=== PATIENT | male | born 1940 | race Caucasian/White ===

== ENCOUNTER 2019-05-01 01:49 | Inpatient (IN) | payer MEDICARE, MEDICAID ==
[~2019-05-01] VITALS: Ht 170.2 cm; Wt 83.0 kg
[2019-05-01] MEDS ORDERED: ONDANSETRON HCL 4MG/2ML INJ IV STA (02:15)
[2019-05-01] MEDS ORDERED: SODIUM CHLORIDE 0.9% 1,000 ML IV ONE (02:15)
[2019-05-01 03:03] LABS: BASOPHILS % 0.4 % (0.0-2.0); EOSINOPHILS % 0.3 % (0.0-5.0); HEMATOCRIT. 38.5 % (42.0-52.0); LYMPHOCYTES % 7.5 % (20.0-50.0); MEAN CORPUSCULAR HEMOGLOBIN 25.1 pg (28.0-32.0); MEAN CORPUSCULAR VOLUME 74.2 fL (80.0-94.0); MEAN PLATELET VOLUME 8.2 fl (7.4-10.4); MONOCYTES % 9.6 % (2.0-8.0); NEUTROPHILS % 82.2 % (40.0-76.0); PLATELET 216 x1000/uL (130-400); RED BLOOD CELL COUNT 5.19 mill/uL (4.7-6.1); RED CELL DISTRIBUTION WIDTH 14.9 % (11.6-14.6)
[2019-05-01 03:08] LABS: CHLORIDE 104 mEq/L (98-107)
[2019-05-01 03:57] LABS: CLARITY URINE CLEAR (CLEAR); COLOR URINE YELLOW (YELLOW); KETONES URINE NEGATIVE (NEGATIVE); LEUKOCYTE ESTERASE URINE NEGATIVE (NEGATIVE); NITRITE URINE NEGATIVE (NEGATIVE); OCCULT BLOOD URINE NEGATIVE (NEGATIVE); PH URINE 7.5 (4.5-8.0); PROTEIN URINE 1+ (NEGATIVE); SPECIFIC GRAVITY URINE 1.014 (1.005-1.030)
[2019-05-01] MEDS ORDERED: SODIUM CHLORIDE 0.9% 500 ML IV ONE (06:00)
[2019-05-01] MEDS ORDERED: ASPIRIN 325MG TABLET PO ONE (06:00)
[2019-05-01] MEDS ORDERED: IOHEXOL-350 100 ML BOTTLE ONE (06:24)
[2019-05-01] MEDS ORDERED: GUAIFENESIN 200MG/10ML SUGAR FREE UDC PO PRN (10:30)
[2019-05-01] MEDS ORDERED: CLONIDINE 0.1MG TABLET PO PRN (10:30)
[2019-05-01] MEDS ORDERED: ACETAMINOPHEN 325MG TABLET PO PRN (10:30)
[2019-05-01] MEDS ORDERED: MAGNESIUM HYDROXIDE 400MG/5ML 30ML UDC PO PRN (10:30)
[2019-05-01] MEDS ORDERED: ONDANSETRON HCL 4MG/2ML INJ IV PRN (10:30)
[2019-05-01] MEDS ORDERED: MAGNESIUM/ALUMINUM HYDROXIDE/SIMETHICONE 30ML UDC PO PRN (10:30)
[2019-05-01] MEDS ORDERED: NA PHOS,M-B/NA PHOS,DI-BA ENEMA 118ML PR PRN (10:30)
[2019-05-01 11:50] VITALS: BP 150/83
[2019-05-01 12:00] VITALS: BP 150/83
[2019-05-01] MEDS ORDERED: METF-414 MT (12:22)
[2019-05-01] MEDS ORDERED: BENA5TAB6 MT (12:22)
[2019-05-01] MEDS ORDERED: DEXTROSE 50% WATER 50ML SYRINGE IV PRN (14:00)
[2019-05-01] MEDS: SODIUM CHLORIDE 0.9% INJ 3ML FLUSH IVF SCH (14:06)
[2019-05-01] MEDS: ENOXAPARIN 40MG/0.4ML SYR SUBCUT SCH (14:07)
[2019-05-01 16:00] VITALS: BP 148/79
[2019-05-01] MEDS: BLOOD SUGAR DIAGNOSTIC STRIP TEST SCH ×2 (17:40→20:32)
[2019-05-01] MEDS: INSULIN LISPRO 100 UNITS/ML SUBCUT SCH ×2 (19:20→20:47)
[2019-05-01 20:00] VITALS: BP 133/75
[2019-05-01] MEDS: FAMOTIDINE 20MG TABLET PO SCH (20:39)
[2019-05-01] MEDS: ATORVASTATIN CALCIUM 20MG TABLET PO SCH (20:39)
[2019-05-02] VITALS: BP 137/79
[2019-05-02] MEDS: SODIUM CHLORIDE 0.9% INJ 3ML FLUSH IVF SCH ×3 (01:54→20:43)
[2019-05-02 04:00] VITALS: BP 121/64
[2019-05-02] MEDS: BLOOD SUGAR DIAGNOSTIC STRIP TEST SCH ×4 (07:40→21:00)
[2019-05-02 08:00] VITALS: BP 144/70
[2019-05-02] MEDS ORDERED: ASPIRIN 325MG EC TABLET PO SCH (09:00)
[2019-05-02] MEDS: INSULIN LISPRO 100 UNITS/ML SUBCUT SCH ×4 (10:08→20:38)
[2019-05-02] MEDS: ENOXAPARIN 40MG/0.4ML SYR SUBCUT SCH (10:08)
[2019-05-02 12:00] VITALS: BP 142/66
[2019-05-02 16:00] VITALS: BP 134/68
[2019-05-02 16:23] LABS: T4 FREE 1.37 ng/dL (0.76-1.46)
[2019-05-02 16:30] LABS: FOLIC ACID (FOLATE) SERUM 16.3 ng/mL (>5.38)
[2019-05-02 20:00] VITALS: BP 132/66
[2019-05-02] MEDS: ATORVASTATIN CALCIUM 20MG TABLET PO SCH (20:38)
[2019-05-02] MEDS: FAMOTIDINE 20MG TABLET PO SCH (20:38)
[2019-05-02] MEDS ORDERED: QUETIAPINE FUMARATE 50MG TABLET PO PRN (23:30)
[2019-05-03 00:19] VITALS: BP 142/69
[2019-05-03 04:00] VITALS: BP 137/68
[2019-05-03] MEDS: SODIUM CHLORIDE 0.9% INJ 3ML FLUSH IVF SCH ×3 (06:53→20:58)
[2019-05-03] MEDS: INSULIN LISPRO 100 UNITS/ML SUBCUT SCH ×4 (07:36→20:57)
[2019-05-03] MEDS: BLOOD SUGAR DIAGNOSTIC STRIP TEST SCH ×4 (07:36→20:57)
[2019-05-03 08:00] VITALS: BP 107/71
[2019-05-03] MEDS: ENOXAPARIN 40MG/0.4ML SYR SUBCUT SCH (09:28)
[2019-05-03] MEDS: CLOPIDOGREL 75MG TABLET PO SCH (09:28)
[2019-05-03 12:00] VITALS: BP 132/66
[2019-05-03] MEDS ORDERED: ONDANSETRON HCL 4MG TABLET PO PRN (15:15)
[2019-05-03 16:00] VITALS: BP 146/65
[2019-05-03 17:05] LABS: HEMATOCRIT 41.5 % (42.0-52.0); HEMOGLOBIN 13.7 g/dL (14.0-18.0); MEAN CORPUSCULAR HEMOGLOBIN 24.7 pg (28.0-32.0); MEAN CORPUSCULAR VOLUME 75.1 fL (80.0-94.0); PLATELET 232 x1000/uL (130-400); RED BLOOD CELL COUNT 5.52 mill/uL (4.7-6.1); RED CELL DISTRIBUTION WIDTH 15.3 % (11.6-14.6)
[2019-05-03 17:10] LABS: CHLORIDE 105 mEq/L (98-107)
[2019-05-03 17:12] LABS: INR 1.1; PROTHROMBIN TIME 11.1 sec (9.6-11.0)
[2019-05-03 20:00] VITALS: BP 117/63
[2019-05-03] MEDS: ATORVASTATIN CALCIUM 20MG TABLET PO SCH (20:57)
[2019-05-03] MEDS: FAMOTIDINE 20MG TABLET PO SCH (20:57)
[2019-05-03] MEDS ORDERED: QUETIAPINE FUMARATE 25MG TABLET PO SCH (21:00)
[2019-05-04] VITALS (7 sets, daily range): BP systolic 118–153; BP diastolic 58–79
[2019-05-04] MEDS: BLOOD SUGAR DIAGNOSTIC STRIP TEST SCH ×3 (06:44→18:08)
[2019-05-04] MEDS: SODIUM CHLORIDE 0.9% INJ 3ML FLUSH IVF SCH ×2 (06:46→18:08)
[2019-05-04] MEDS: INSULIN LISPRO 100 UNITS/ML SUBCUT SCH ×3 (07:55→18:08)
[2019-05-04] MEDS: CLOPIDOGREL 75MG TABLET PO SCH (08:31)
[2019-05-04] MEDS: ENOXAPARIN 40MG/0.4ML SYR SUBCUT SCH (08:31)
== END 2019-05-04 22:30 | DRG 65 ==
LOC: ER 01:49 → EDBEDREQ 03:59 → EDBEDREQTM 03:59 → 7WST 04:41 → EDBD 04:41 → EDBEDREQTM 04:42 → EDBEDREQ 04:42 → ENRESERV 10:28 → 7WST 05-02 09:13
PROVIDERS: ADMIT Internal Medicine; ATTEND Internal Medicine
DX: I63.531 Cerebral infarction due to unspecified occlusion or stenosis of right posterior cerebral artery (principal); G81.94 Hemiplegia, unspecified affecting left nondominant side; G93.40 Encephalopathy, unspecified; R41.4 Neurologic neglect syndrome; I50.22 Chronic systolic (congestive) heart failure; H53.462 Homonymous bilateral field defects, left side; N40.0 Benign prostatic hyperplasia without lower urinary tract symptoms; F03.90 Unspecified dementia, unspecified severity, without behavioral disturbance, psychotic disturbance, mood disturbance, and anxiety; D64.9 Anemia, unspecified; E87.6 Hypokalemia; R47.01 Aphasia; E11.65 Type 2 diabetes mellitus with hyperglycemia; H54.7 Unspecified visual loss; I11.0 Hypertensive heart disease with heart failure; R13.10 Dysphagia, unspecified; Z87.891 Personal history of nicotine dependence; W18.30XA Fall on same level, unspecified, initial encounter; Y93.89 Activity, other specified; Y92.89 Other specified places as the place of occurrence of the external cause; Y99.8 Other external cause status; Z79.899 Other long term (current) drug therapy; Z79.82 Long term (current) use of aspirin
CPT/HCPCS: 36415; 70496; 70498; 70551; 71045; 73220; 80048; 80061; 82607; 82746; 82962; 83036; 83880; 84153; 84439; 84443; 84481; 84484; 85027; 92523; 92610; 93005; 93306; 93880; 93970; 96361; 96374; 97163; 97166; 97530; 97535; 99285; J1650; J1815; J2405; J7030; J7040; Q9967; G0103